=== PATIENT | female | born 1940 | race Caucasian/White ===

== ENCOUNTER 2020-12-25 16:57 | Inpatient (IN) ==
[2020-12-25 17:56] LABS: Basophils % 0.1 % (0.0-0.8); Eosinophils # 0.3 10*3/uL (0.0-0.87); Eosinophils % 2.4 % (0.00-10.9); Hematocrit 31.8 VOL% (35.7-47.0); Hemoglobin 9.8 GM/DL (12.0-16.0); Immature Granulocytes % 0.6 %; Immature Granulocytes Absolute 0.09 #; Lymphocytes # 1.5 10*3/uL (1.4-4.0); Lymphocytes % 10.6 % (21.3-54.2); Mean Corpuscular HGB Conc 30.8 GM/DL (32-36); Mean Corpuscular Volume 83.5 FL (87-102); Mean Platelet Volume 10.7 FL (9.6-12.0); Monocytes % 7.9 % (1.7-12.7); Neutrophils % 78.4 % (38.7-73.9); Platelet Count 229 T/CUMM (130-400); Red Blood Count 3.81 MC/CUMM (3.8-5.5); Red Cell Distribution Width 16.7 % (9.3-17.3); White Blood Count 13.9 T/CUMM (4-12)
[2020-12-25 18:16] LABS: Lactic Acid 1.1 MMOL/L (0.4-2.0)
[2020-12-25 18:17] LABS: Albumin 2.5 G/DL (3.4-5.0); Bilirubin,Total 0.4 MG/DL (0.2-1.0); Calcium 8.7 MG/DL (8.5-10.1); Potassium 5.1 MMOL/L (3.5-5.1); Total Protein 6.5 G/DL (5.0-7.5)
[2020-12-25] MEDS ORDERED: SODIUM CHLORIDE 0.9% 500 ML IV STA (18:18)
[2020-12-25 18:40] LABS: PT Patient Result 11.1 SECS (9.8-11.9)
[2020-12-25 18:44] LABS: Bacteria,Urine Moderate /HPF (Few); Bilirubin,Urine Negative (Negative); Blood, Urine Moderate mg/dL (Negative); Glucose,Urine (UA) Negative (Negative); Ketones,Urine Negative (Negative); Mucus,Urine Many /LPF (Occasional); Nitrite,Urine Positive (Negative); Protein,Urine Negative; RBC,Urine 1 /HPF (0-4); Squamous Epithelial Cell,Urine Occasional /HPF (0-10); Urine Appearance CLEAR (Clear); Urine Color Yellow (Yellow); Urine Specific Gravity 1.011 (1.001-1.035); Urine Urobilinogen < 2.0 EU/DL (0.2-1.0); WBC,Urine 3 /HPF (0-6)
[2020-12-25] MEDS ORDERED: MEROPENEM 500 MG in SODIUM CHLORIDE 0.9% 100 ML IV ONE (18:46)
[2020-12-25 18:47] LABS: Troponin I 0.525 NG/ML (0.00-0.045)
[2020-12-25 18:49] LABS: Barbiturates Screen,Urine Negative (Negative); Benzodiazepines Screen,Urine Negative (Negative); Cannabinoid Screen,Urine Negative (Negative); Opiate Screen,Urine Positive (Negative); Phencyclidine Screen,Urine Negative (Negative)
[2020-12-25 18:54] LABS: Anisocytosis Slight; Burr Cells Few; Eosinophils 5 % (0-10); Hypochromasia 1+; Lymphocytes 10 % (20-55); Microcytosis Slight; Platelet Estimate Normal; Poikilocytosis Few; Segmented Neutrophils 82 % (50-85); Total Cells Counted 100
[2020-12-25] MEDS ORDERED: ZALEPLON 5 MG CAPSULE PO PRN (19:22)
[2020-12-25] MEDS ORDERED: NICOTINE 21 MG/24 HR PATCH TRANSDERM PRN (19:22)
[2020-12-25] MEDS ORDERED: DEXTROSE 50% 25 GM/50 ML VIAL IV PRN ×2 (19:22)
[2020-12-25] MEDS ORDERED: GLUCAGON 1 MG VIAL IM PRN ×2 (19:22)
[2020-12-25] MEDS ORDERED: BISACODYL 5 MG TABLET PO PRN (19:22)
[2020-12-25] MEDS ORDERED: ACETAMINOPHEN 325 MG TABLET PO PRN (19:22)
[2020-12-25] MEDS ORDERED: hydrALAZINE 20 MG/1 ML VIAL IV PRN (19:22)
[2020-12-25] MEDS ORDERED: ENOXAPARIN 80 MG/0.8 ML SYRINGE SUBCUT ONE (19:23)
[2020-12-25] MEDS: SODIUM CHLORIDE 0.9% 1,000 ML IV SCH (20:10)
[2020-12-25] MEDS: cefTRIAXone 1,000 MG in SYRINGE 1 EACH IV SCH (21:21)
[2020-12-25] MEDS ORDERED: SERTRALINE 25 MG TABLET ONE (21:39)
[2020-12-25] MEDS: AZITHROMYCIN INJ 500 MG in SODIUM CHLORIDE 0.9% 250 ML IV SCH (21:45)
[2020-12-25] MEDS: INSULIN LISPRO 100 UNIT/ML SUBCUT SCH (21:48)
[2020-12-25] MEDS ORDERED: QUEtiapine 100 MG TABLET ONE (22:03)
[2020-12-25] MEDS: QUEtiapine 100 MG TABLET PO SCH (22:06)
[2020-12-26] MEDS: ALBUTEROL/IPRATROPIUM 3 ML NEB RESP TX SCH ×4 (01:24→19:00)
[2020-12-26 05:15] LABS: Basophils % 0.2 % (0.0-0.8); Eosinophils # 0.2 10*3/uL (0.0-0.87); Eosinophils % 2.1 % (0.00-10.9); Hematocrit 28.7 VOL% (35.7-47.0); Immature Granulocytes % 1.1 %; Immature Granulocytes Absolute 0.12 #; Lymphocytes # 1.8 10*3/uL (1.4-4.0); Lymphocytes % 15.9 % (21.3-54.2); Mean Corpuscular HGB Conc 31.4 GM/DL (32-36); Mean Corpuscular Volume 82.9 FL (87-102); Mean Platelet Volume 10.7 FL (9.6-12.0); Monocytes % 8.7 % (1.7-12.7); Platelet Count 222 T/CUMM (130-400); Red Blood Count 3.46 MC/CUMM (3.8-5.5); Red Cell Distribution Width 16.6 % (9.3-17.3); White Blood Count 11.1 T/CUMM (4-12)
[2020-12-26 05:46] LABS: Calcium 7.9 MG/DL (8.5-10.1); Osmolality,Calculated 283.1 MOS/KG (273-304); Potassium 4.7 MMOL/L (3.5-5.1)
[2020-12-26 05:48] LABS: Ferritin 31.6 ng/ml (8-252)
[2020-12-26 06:28] LABS: Sedimentation Rate-Westergren 73 MM/HR (0-30)
[2020-12-26] MEDS ORDERED: ENOXAPARIN 100 MG/ML SYRINGE SUBCUT SCH (09:00)
[2020-12-26] MEDS ORDERED: ENOXAPARIN 80 MG/0.8 ML SYRINGE SUBCUT ONE (09:00)
[2020-12-26] MEDS: PANTOPRAZOLE 40 MG TABLET PO SCH (09:10)
[2020-12-26] MEDS: MEGESTROL 40 MG TABLET PO SCH (09:10)
[2020-12-26] MEDS: CELECOXIB 200 MG CAPSULE PO SCH (09:10)
[2020-12-26] MEDS: INSULIN LISPRO 100 UNIT/ML SUBCUT SCH ×4 (09:10→22:48)
[2020-12-26] MEDS ORDERED: CALCIUM CARBONATE CHEW 500 MG TABLET PO ONE (12:02)
[2020-12-26] MEDS: SODIUM CHLORIDE 0.9% 1,000 ML IV SCH (13:08)
[2020-12-26] MEDS ORDERED: MAGNESIUM SULF RIDER 4 GM in PREMIX 1 EACH IV PRN (13:12)
[2020-12-26] MEDS: MAGNESIUM SULF RIDER 2 GM in PREMIX 1 EACH IV PRN (13:31)
[2020-12-26] MEDS: QUEtiapine 100 MG TABLET PO SCH (21:28)
[2020-12-26] MEDS: cefTRIAXone 1,000 MG in SYRINGE 1 EACH IV SCH (21:32)
[2020-12-26] MEDS: AZITHROMYCIN INJ 500 MG in SODIUM CHLORIDE 0.9% 250 ML IV SCH (21:56)
[2020-12-27] MEDS: ALBUTEROL/IPRATROPIUM 3 ML NEB RESP TX SCH ×4 (02:07→20:20)
[2020-12-27 05:39] LABS: Basophils % 0.3 % (0.0-0.8); Eosinophils # 0.2 10*3/uL (0.0-0.87); Eosinophils % 2.7 % (0.00-10.9); Hematocrit 27.9 VOL% (35.7-47.0); Hemoglobin 8.7 GM/DL (12.0-16.0); Immature Granulocytes % 1.2 %; Immature Granulocytes Absolute 0.11 #; Mean Corpuscular HGB Conc 31.2 GM/DL (32-36); Mean Platelet Volume 9.9 FL (9.6-12.0); Monocytes % 8.3 % (1.7-12.7); Neutrophils % 65.5 % (38.7-73.9); Platelet Count 245 T/CUMM (130-400); Red Blood Count 3.32 MC/CUMM (3.8-5.5)
[2020-12-27 05:58] LABS: Calcium 8.2 MG/DL (8.5-10.1); Osmolality,Calculated 282.3 MOS/KG (273-304); Potassium 4.4 MMOL/L (3.5-5.1)
[2020-12-27 06:06] LABS: Hypochromasia 1+; Microcytosis 1+; Platelet Estimate Adequate
[2020-12-27] MEDS: SODIUM CHLORIDE 0.9% 1,000 ML IV SCH ×2 (08:16)
[2020-12-27] MEDS: INSULIN LISPRO 100 UNIT/ML SUBCUT SCH ×4 (08:17→21:59)
[2020-12-27] MEDS: CELECOXIB 200 MG CAPSULE PO SCH (09:49)
[2020-12-27] MEDS: MEGESTROL 40 MG TABLET PO SCH (09:49)
[2020-12-27] MEDS: PANTOPRAZOLE 40 MG TABLET PO SCH (09:49)
[2020-12-27] MEDS ORDERED: INFLUENZA VIRUS VACCINE 0.5 ML SYRINGE IM ONE (12:25)
[2020-12-27] MEDS: cefTRIAXone 2,000 MG in SYRINGE 1 EACH IV SCH (14:38)
[2020-12-27 19:39] LABS: Folate 6.6 NG/ML (5.38-24.0); Vitamin B12 542 PG/ML (211-911)
[2020-12-27] MEDS: MORPHINE 4 MG/1 ML VIAL IV PRN (20:12)
[2020-12-27] MEDS: AZITHROMYCIN INJ 500 MG in SODIUM CHLORIDE 0.9% 250 ML IV SCH (20:12)
[2020-12-27] MEDS: QUEtiapine 100 MG TABLET PO SCH (20:12)
[2020-12-28] MEDS: SODIUM CHLORIDE 0.9% 1,000 ML IV SCH ×2 (00:45→21:52)
[2020-12-28] MEDS: ALBUTEROL/IPRATROPIUM 3 ML NEB RESP TX SCH ×4 (02:45→19:59)
[2020-12-28 06:55] LABS: Basophils % 0.1 % (0.0-0.8); Eosinophils # 0.3 10*3/uL (0.0-0.87); Eosinophils % 3.9 % (0.00-10.9); Hematocrit 25.6 VOL% (35.7-47.0); Hemoglobin 8.2 GM/DL (12.0-16.0); Immature Granulocytes % 1.8 %; Immature Granulocytes Absolute 0.12 #; Lymphocytes # 1.8 10*3/uL (1.4-4.0); Lymphocytes % 26.8 % (21.3-54.2); Mean Corpuscular Volume 80.3 FL (87-102); Mean Platelet Volume 10.3 FL (9.6-12.0); Neutrophils % 60.4 % (38.7-73.9); Platelet Count 268 T/CUMM (130-400); Red Blood Count 3.19 MC/CUMM (3.8-5.5); Red Cell Distribution Width 16.9 % (9.3-17.3); White Blood Count 6.8 T/CUMM (4-12)
[2020-12-28 07:28] LABS: Calcium 8.3 MG/DL (8.5-10.1); Osmolality,Calculated 279.4 MOS/KG (273-304); Potassium 3.9 MMOL/L (3.5-5.1)
[2020-12-28 07:32] LABS: Eosinophils 4 % (0-10); Lymphocytes 28 % (20-55); Segmented Neutrophils 64 % (50-85); Total Cells Counted 100
[2020-12-28 07:33] LABS: Hypochromasia Slight; Polychromasia Few
[2020-12-28 07:34] LABS: Anisocytosis Slight; Macrocytosis Slight; Platelet Estimate Normal
[2020-12-28 08:22] LABS: Folate 7.6 NG/ML (5.38-24.0); Vitamin B12 468 PG/ML (211-911)
[2020-12-28 08:41] LABS: Hemoglobin A1 (Alkaline) 97.1 % (96.5-98.5); Hemoglobin A2 (Alkaline) 2.9 % (1.5-3.5)
[2020-12-28] MEDS: CELECOXIB 200 MG CAPSULE PO SCH (08:44)
[2020-12-28] MEDS: PANTOPRAZOLE 40 MG TABLET PO SCH (08:44)
[2020-12-28] MEDS: MEGESTROL 40 MG TABLET PO SCH (08:44)
[2020-12-28] MEDS: INSULIN LISPRO 100 UNIT/ML SUBCUT SCH ×4 (09:01→21:56)
[2020-12-28] MEDS: MORPHINE 4 MG/1 ML VIAL IV PRN ×2 (12:59→21:35)
[2020-12-28] MEDS: cefTRIAXone 2,000 MG in SYRINGE 1 EACH IV SCH (13:36)
[2020-12-28] MEDS ORDERED: DILTIAZEM 50 MG/10 ML VIAL IV ONE (20:33)
[2020-12-28] MEDS: ONDANSETRON 4 MG/2 ML VIAL IV PRN (21:41)
[2020-12-28] MEDS: AZITHROMYCIN INJ 500 MG in SODIUM CHLORIDE 0.9% 250 ML IV SCH (21:55)
[2020-12-28] MEDS: ENOXAPARIN 60 MG/0.6 ML SYRINGE SUBCUT SCH (21:58)
[2020-12-28] MEDS: guaiFENesin/DM ER 600-30 MG TABLET PO PRN (22:01)
[2020-12-28] MEDS: QUEtiapine 100 MG TABLET PO SCH (22:02)
[2020-12-29] MEDS: ALBUTEROL/IPRATROPIUM 3 ML NEB RESP TX SCH ×4 (02:06→19:43)
[2020-12-29] MEDS: diphenhydrAMINE CAP 25 MG CAPSULE PO PRN (05:27)
[2020-12-29 05:43] LABS: Calcium 8.1 MG/DL (8.5-10.1); Potassium 4.1 MMOL/L (3.5-5.1)
[2020-12-29 06:51] LABS: Basophils % 0.2 % (0.0-0.8); Eosinophils # 0.2 10*3/uL (0.0-0.87); Eosinophils % 3.1 % (0.00-10.9); Hematocrit 26.4 VOL% (35.7-47.0); Hemoglobin 8.1 GM/DL (12.0-16.0); Immature Granulocytes % 1.8 %; Immature Granulocytes Absolute 0.11 #; Lymphocytes # 2.3 10*3/uL (1.4-4.0); Lymphocytes % 36.5 % (21.3-54.2); Mean Corpuscular HGB Conc 30.7 GM/DL (32-36); Mean Corpuscular Volume 83.3 FL (87-102); Mean Platelet Volume 10.9 FL (9.6-12.0); Monocytes % 7.6 % (1.7-12.7); Neutrophils % 50.8 % (38.7-73.9); Platelet Count 328 T/CUMM (130-400); Red Blood Count 3.17 MC/CUMM (3.8-5.5); Red Cell Distribution Width 17.2 % (9.3-17.3); White Blood Count 6.2 T/CUMM (4-12)
[2020-12-29] MEDS: MAGNESIUM SULF RIDER 2 GM in PREMIX 1 EACH IV PRN (06:51)
[2020-12-29 07:13] LABS: Burr Cells Few; Ovalocytes Few; Platelet Estimate Normal; Poikilocytosis 1+
[2020-12-29 07:14] LABS: Anisocytosis 2+
[2020-12-29] MEDS: INSULIN LISPRO 100 UNIT/ML SUBCUT SCH ×4 (08:55→22:52)
[2020-12-29] MEDS: ONDANSETRON 4 MG/2 ML VIAL IV PRN ×3 (09:01→22:40)
[2020-12-29] MEDS: PANTOPRAZOLE 40 MG TABLET PO SCH (09:02)
[2020-12-29] MEDS: MEGESTROL 40 MG TABLET PO SCH (09:02)
[2020-12-29] MEDS: CELECOXIB 200 MG CAPSULE PO SCH (09:02)
[2020-12-29] MEDS: ENOXAPARIN 60 MG/0.6 ML SYRINGE SUBCUT SCH ×2 (09:05→22:49)
[2020-12-29] MEDS ORDERED: ALUM/MAG/SIMETH/LIDO VISC 1:1 30 ML BOTTLE PO ONE (09:47)
[2020-12-29] MEDS: ALUMINUM/MAGNES/SIMETH MAX STR 30 ML UDCUP PO PRN (13:07)
[2020-12-29] MEDS: cefTRIAXone 2,000 MG in SYRINGE 1 EACH IV SCH (13:08)
[2020-12-29] MEDS: MORPHINE 4 MG/1 ML VIAL IV PRN ×2 (13:08→22:40)
[2020-12-29] MEDS: GABAPENTIN 300 MG CAPSULE PO SCH ×2 (15:07→22:42)
[2020-12-29] MEDS: SODIUM CHLORIDE 0.9% 1,000 ML IV SCH (17:54)
[2020-12-29] MEDS: QUEtiapine 100 MG TABLET PO SCH (22:42)
[2020-12-29] MEDS: AZITHROMYCIN INJ 500 MG in SODIUM CHLORIDE 0.9% 250 ML IV SCH (22:48)
[2020-12-30] MEDS: ALBUTEROL/IPRATROPIUM 3 ML NEB RESP TX SCH ×4 (03:00→19:20)
[2020-12-30] MEDS: SODIUM CHLORIDE 0.9% 1,000 ML IV SCH ×3 (04:10→20:16)
[2020-12-30 06:15] LABS: Basophils % 0.3 % (0.0-0.8); Eosinophils # 0.2 10*3/uL (0.0-0.87); Eosinophils % 3.5 % (0.00-10.9); Hematocrit 24.1 VOL% (35.7-47.0); Hemoglobin 7.6 GM/DL (12.0-16.0); Immature Granulocytes Absolute 0.06 #; Lymphocytes % 34.1 % (21.3-54.2); Mean Corpuscular HGB Conc 31.5 GM/DL (32-36); Mean Corpuscular Volume 81.1 FL (87-102); Mean Platelet Volume 9.8 FL (9.6-12.0); Monocytes % 5.9 % (1.7-12.7); Neutrophils % 55.2 % (38.7-73.9); Platelet Count 325 T/CUMM (130-400); Red Blood Count 2.97 MC/CUMM (3.8-5.5); Red Cell Distribution Width 17.2 % (9.3-17.3); White Blood Count 5.8 T/CUMM (4-12)
[2020-12-30 06:33] LABS: Calcium 8.2 MG/DL (8.5-10.1); Osmolality,Calculated 280.3 MOS/KG (273-304); Potassium 4.2 MMOL/L (3.5-5.1)
[2020-12-30] MEDS: INSULIN LISPRO 100 UNIT/ML SUBCUT SCH ×4 (08:08→21:51)
[2020-12-30] MEDS: MORPHINE 4 MG/1 ML VIAL IV PRN ×2 (09:04→19:53)
[2020-12-30] MEDS: PANTOPRAZOLE 40 MG TABLET PO SCH (09:04)
[2020-12-30] MEDS: CELECOXIB 200 MG CAPSULE PO SCH (09:04)
[2020-12-30] MEDS: ENOXAPARIN 60 MG/0.6 ML SYRINGE SUBCUT SCH ×2 (09:04→21:50)
[2020-12-30] MEDS: MEGESTROL 40 MG TABLET PO SCH (09:04)
[2020-12-30] MEDS: GABAPENTIN 300 MG CAPSULE PO SCH ×3 (09:04→21:44)
[2020-12-30 09:14] LABS: Anisocytosis 1+; Eosinophils 2 % (0-10); Lymphocytes 27 % (20-55); Macrocytosis 1+; Platelet Estimate Normal; Segmented Neutrophils 65 % (50-85); Total Cells Counted 100
[2020-12-30] MEDS: cefTRIAXone 2,000 MG in SYRINGE 1 EACH IV SCH (14:12)
[2020-12-30] MEDS: ONDANSETRON 4 MG/2 ML VIAL IV PRN (19:50)
[2020-12-30] MEDS: QUEtiapine 100 MG TABLET PO SCH (21:44)
[2020-12-30] MEDS: AMIODARONE 200 MG TABLET PO SCH (21:45)
[2020-12-31] MEDS: ALBUTEROL/IPRATROPIUM 3 ML NEB RESP TX SCH ×4 (01:12→19:09)
[2020-12-31] MEDS: ONDANSETRON 4 MG/2 ML VIAL IV PRN ×2 (05:35→22:37)
[2020-12-31] MEDS: MORPHINE 4 MG/1 ML VIAL IV PRN ×3 (05:35→22:37)
[2020-12-31 06:12] LABS: Basophils % 0.3 % (0.0-0.8); Eosinophils # 0.3 10*3/uL (0.0-0.87); Eosinophils % 4.9 % (0.00-10.9); Hematocrit 25.5 VOL% (35.7-47.0); Hemoglobin 7.9 GM/DL (12.0-16.0); Immature Granulocytes % 0.7 %; Immature Granulocytes Absolute 0.04 #; Lymphocytes # 2.2 10*3/uL (1.4-4.0); Mean Corpuscular Volume 83.3 FL (87-102); Mean Platelet Volume 10.2 FL (9.6-12.0); Monocytes % 6.5 % (1.7-12.7); Neutrophils % 50.6 % (38.7-73.9); Platelet Count 385 T/CUMM (130-400); Red Blood Count 3.06 MC/CUMM (3.8-5.5); Red Cell Distribution Width 17.5 % (9.3-17.3)
[2020-12-31 06:31] LABS: Hypochromasia 1+; Microcytosis 1+
[2020-12-31 06:32] LABS: Ovalocytes Few; Platelet Estimate Normal
[2020-12-31 06:48] LABS: Calcium 8.2 MG/DL (8.5-10.1); Osmolality,Calculated 278.4 MOS/KG (273-304); Potassium 4.3 MMOL/L (3.5-5.1)
[2020-12-31] MEDS: GABAPENTIN 300 MG CAPSULE PO SCH ×3 (09:53→22:24)
[2020-12-31] MEDS: AMIODARONE 200 MG TABLET PO SCH ×2 (09:53→22:25)
[2020-12-31] MEDS: diphenhydrAMINE CAP 25 MG CAPSULE PO PRN ×2 (09:53→16:08)
[2020-12-31] MEDS: ENOXAPARIN 60 MG/0.6 ML SYRINGE SUBCUT SCH ×2 (09:54→22:17)
[2020-12-31] MEDS: MEGESTROL 40 MG TABLET PO SCH (09:54)
[2020-12-31] MEDS: CELECOXIB 200 MG CAPSULE PO SCH (09:59)
[2020-12-31] MEDS: INSULIN LISPRO 100 UNIT/ML SUBCUT SCH ×4 (10:03→22:28)
[2020-12-31] MEDS: SODIUM CHLORIDE 0.9% 1,000 ML IV SCH ×2 (10:03→14:13)
[2020-12-31] MEDS: PANTOPRAZOLE 40 MG TABLET PO SCH (10:04)
[2020-12-31] MEDS: ALUMINUM/MAGNES/SIMETH MAX STR 30 ML UDCUP PO PRN (13:01)
[2020-12-31] MEDS: cefTRIAXone 2,000 MG in SYRINGE 1 EACH IV SCH (16:03)
[2020-12-31] MEDS: QUEtiapine 100 MG TABLET PO SCH (22:24)
[2020-12-31] MEDS: guaiFENesin/DM ER 600-30 MG TABLET PO PRN (22:25)
[2021-01-01] MEDS: ALBUTEROL/IPRATROPIUM 3 ML NEB RESP TX SCH ×3 (00:23→15:30)
[2021-01-01] MEDS: SODIUM CHLORIDE 0.9% 1,000 ML IV SCH ×2 (02:52→06:02)
[2021-01-01] MEDS: diphenhydrAMINE CAP 25 MG CAPSULE PO PRN ×2 (02:59→11:05)
[2021-01-01 05:49] LABS: Basophils % 0.3 % (0.0-0.8); Eosinophils # 0.2 10*3/uL (0.0-0.87); Eosinophils % 2.5 % (0.00-10.9); Hematocrit 25.3 VOL% (35.7-47.0); Hemoglobin 7.8 GM/DL (12.0-16.0); Immature Granulocytes % 0.5 %; Immature Granulocytes Absolute 0.04 #; Lymphocytes # 1.6 10*3/uL (1.4-4.0); Lymphocytes % 21.2 % (21.3-54.2); Mean Corpuscular HGB Conc 30.8 GM/DL (32-36); Mean Corpuscular Volume 84.6 FL (87-102); Mean Platelet Volume 10.3 FL (9.6-12.0); Neutrophils % 70.5 % (38.7-73.9); Platelet Count 413 T/CUMM (130-400); Red Blood Count 2.99 MC/CUMM (3.8-5.5); Red Cell Distribution Width 17.5 % (9.3-17.3); White Blood Count 7.6 T/CUMM (4-12)
[2021-01-01 06:04] LABS: Calcium 7.9 MG/DL (8.5-10.1); Osmolality,Calculated 279.4 MOS/KG (273-304); Potassium 4.6 MMOL/L (3.5-5.1)
[2021-01-01] MEDS: INSULIN LISPRO 100 UNIT/ML SUBCUT SCH ×2 (08:14→12:59)
[2021-01-01] MEDS ORDERED: APIXABAN 2.5 MG TABLET PO SCH (09:00)
[2021-01-01] MEDS: GABAPENTIN 300 MG CAPSULE PO SCH ×2 (09:13→16:09)
[2021-01-01] MEDS: PANTOPRAZOLE 40 MG TABLET PO SCH (09:14)
[2021-01-01] MEDS: AMIODARONE 200 MG TABLET PO SCH (09:14)
[2021-01-01] MEDS: MEGESTROL 40 MG TABLET PO SCH (09:14)
[2021-01-01] MEDS: CELECOXIB 200 MG CAPSULE PO SCH (09:14)
[2021-01-01] MEDS: cefTRIAXone 2,000 MG in SYRINGE 1 EACH IV SCH (13:51)
[2021-01-01 16:24] VITALS: BP 141/66
== END 2021-01-01 16:26 | disposition home or self-care (01) | DRG 194 ==
LOC: EDBD → EDUNIT# → N.ED 16:57 → N.EDINP 19:22 → SUATTDRO 19:22 → N.EDINP 12-26 00:05 → N.TELEN 12-26 03:25
PROVIDERS: ADMIT Internal Medicine; ATTEND Hospitalist